=== PATIENT | male | born 1985 | race African-American/Black ===

== ENCOUNTER 2019-03-20 15:12 | Emergency (ER) | payer OTHER ==
[2019-03-20] MEDS ORDERED: ONDANSETRON 4 MG/2 ML VIAL ONE (15:42)
[2019-03-20] MEDS ORDERED: NA CHLORIDE 0.9% 1,000 ML ONE (15:42)
--- NOTE | 2019-03-20 15:50 | RAD REPORT ---
EXAM DESCRIPTION: CT - CTHCSPWOC - 03/20/2019 3:39 pm CLINICAL HISTORY: Trauma, head and neck injury. seizure COMPARISON: No comparisons TECHNIQUE: Axial 5 mm thick images of the head were obtained. Axial 2 mm thick images of the cervical spine were obtained with sagittal and coronal reconstruction images generated and reviewed. All CT scans are performed using dose optimization technique as appropriate and may include automated exposure control or mA/KV adjustment according to patient size. FINDINGS: CT HEAD WITHOUT CONTRAST: No acute hemorrhage, hydrocephalus or extra-axial collection is identified.No areas of brain edema or midline shift. The paranasal sinuses and mastoids are clear.The calvarium is intact. CT CERVICAL SPINE WITHOUT CONTRAST: No fracture or subluxation.No prevertebral soft tissues swelling is identified. IMPRESSION: No acute intracranial or cervical spine findings.
[2019-03-20 15:53] LABS: Absolute Lymphocytes (CBC) 1.9 K/uL (0.7-4.9); Absolute Monocytes 0.4 K/uL (0.1-1.3); Absolute Neutrophil 2.4 K/uL (1.8-8.0); Basophils % 0.4 % (0-1.3); Eosinophils % 1.8 % (0-4.4); Hematocrit 43.1 % (39.6-49.0); Lymphocytes % 39.2 % (15.3-44.8); Monocytes % 9.3 % (3.3-12.3); RBC Red Blood Cell Count 4.85 M/uL (4.33-5.43)
[2019-03-20 16:02] LABS: Protime INR 1.11
[2019-03-20 16:26] LABS: Barbiturates NEGATIVE (NEGATIVE); Benzodiazepines NEGATIVE (NEGATIVE); Cocaine NEGATIVE (NEGATIVE); METHAMPHETAM NEGATIVE (NEGATIVE); Methadone NEGATIVE (NEGATIVE); Opiates NEGATIVE (NEGATIVE); Phencyclidine NEGATIVE (NEGATIVE); THC Cannibis NEGATIVE (NEGATIVE)
[2019-03-20] MEDS ORDERED: FOSPHENYTOIN PE 1,000 MG in NA CHLORIDE 0.9% 100 ML IV ONE (17:00)
[2019-03-20 17:02] LABS: ALT/SGPT 29 U/L (12-78); AST/SGOT 21 U/L (15-37); Alkaline Phosphatase 81 U/L (45-117); BUN Blood Urea Nitrogen 16 mg/dL (7-18); Bicarbonate 25 mmol/L (21-32); Bilirubin Direct < 0.1 mg/dL (0-0.2); Bilirubin Total 0.3 mg/dL (0.2-1.0); Glucose Level 95 mg/dL (74-106); Phenytoin (Dilantin) Level < 0.4 ug/mL (10.0-20.0); Potassium 3.5 mmol/L (3.5-5.1); Sodium Level 143 mmol/L (136-145)
[2019-03-20] MEDS ORDERED: ACETAMINOPHEN 500 MG TAB ONE (17:08)
--- NOTE | 2019-03-20 17:48 | ER ---
Nurse's Notes [facility] Name: Sarah Villatoro Age: 33 yrs Sex: Male : 1985 Arrival Date: 03/20/2019 Time: 15:14 Bed 8 Private MD: Diagnosis: Epilepsy and recurrent seizures Presentation: 03/20 15:10 Presenting complaint: EMS states: called out for seizure witnessed by medical staff and sv inmates, stated he was standing and went down, seizing for about 20 mins before EMS arrived. EMS noted seizure activity on arrival. Pt responded to painful stimuli with sternal rub. Inmate #[id number]. Transition of care: patient was not received from another setting of care. Onset of symptoms was March 20, 2019. Care prior to arrival: IV initiated. 20 GA, in the right antecubital area. 15:10 Method Of Arrival: EMS: [facility] sv 15:10 Acuity: WADE 2 sv 15:20 Risk Assessment: Do you want to hurt yourself or someone else? Patient reports no sv desire to harm self or others. Initial Sepsis Screen: Does the patient meet any 2 criteria? No. Patient's initial sepsis screen is negative. Does the patient have a suspected source of infection? No. Patient's initial sepsis screen is negative. Triage Assessment: 15:19 General: Appears in no apparent distress. uncomfortable, well developed, Behavior is sv cooperative. Pain: Complains of pain in face Pain currently is 5 out of 10 on a pain scale. Neuro: Level of Consciousness is awake, alert, obeys commands, Oriented to person, place, Moves all extremities. Full function Speech is normal. Respiratory: Airway is patent Respiratory effort is even, unlabored, Respiratory pattern is regular, symmetrical. Derm: Skin is pink, warm \T\ dry. Historical: - Allergies: 15:17 No Known Allergies; hb - Home Meds: 15:17 None [Active]; hb - PMHx: 15:17 None; hb - PSHx: 15:17 None; hb - Immunization history:: Adult Immunizations unknown. - Social history:: Smoking status: Patient/guardian denies using tobacco. - Ebola Screening: : No symptoms or risks identified at this time. Screenin:15 Abuse screen: Denies threats or abuse. Denies injuries from another. Nutritional hb screening: No deficits noted. Tuberculosis screening: No symptoms or risk factors identified. Fall Risk Total Santiago Fall Scale indicates High Risk Score (45 or more points). Fall prevention measures have been instituted. Side Rails Up X 2 Placed Close to Nursing Station Frequent Obs/Assessments Occuring As available patient and family educated on Fall Prevention Program and Strategies. Assessment: 16:00 Reassessment: Patient appears in no apparent distress at this time. No changes from sv previously documented assessment. Patient and/or family updated on plan of care and expected duration. Pain level reassessed. Patient is alert, oriented x 3, equal unlabored respirations, skin warm/dry/pink. 17:00 Reassessment: Patient appears in no apparent distress at this time. Patient and/or hb family updated on plan of care and expected duration. Pain level reassessed. Patient is alert, oriented x 3, equal unlabored respirations, skin warm/dry/pink. 18:00 Reassessment: Pt discharged, AOx4, VSS, denies pain, no seizure activity noted this ss visit. PD at bedside, awaiting transport at this time. Vital Signs: 15:15 BP 140 / 88; Pulse 80; Resp 16; Temp 98.3; Pulse Ox 100% on R/A; Pain 5/10; hb 15:43 BP 133 / 83; Pulse 86; Resp 16; Pulse Ox 100% ; sv 16:12 BP 146 / 94; Pulse 80; Resp 20; Pulse Ox 100% on R/A; mh5 16:41 BP 135 / 90; Pulse 83; Resp 16; Pulse Ox 100% ; sv 17:04 BP 142 / 94; Pulse 72; Resp 18; Pulse Ox 100% ; sv 18:00 BP 126 / 82; Pulse 70; Resp 16; Pulse Ox 99% on R/A; Pain 0/10; ss Gary Coma Score: 15:19 Eye Response: to voice(3). Verbal Response: confused(4). Motor Response: obeys sv commands(6). Total: 13. 17:00 Eye Response: spontaneous(4). Verbal Response: oriented(5). Motor Response: obeys hb commands(6). Total: 15. ED Course: 15:14 Patient arrived in ED. sv 15:15 Arm band placed on. hb 15:16 Patient has correct armband on for positive identification. Side rails up X2. Security hb at bedside. Seizure precautions initiated. 15:16 Inserted saline lock: 20 gauge in right antecubital area, using aseptic technique. hb Blood collected. 15:19 Triage completed. sv 15:19 Gabriela Moran, JEMMA is Primary Nurse. sv 15:19 Mario Strickland PA is PHCP. cp 15:19 Marciano Elias MD is Attending Physician. cp 15:[address] via stretcher. sv 15:39 CT Head C Spine In Process Unspecified. EDMS 15:48 EKG done, by therapeutic massage technician. reviewed by Mario GIBBONS. sm3 15:53 Acetaminophen Sent. sv 15:53 Basic Metabolic Panel Sent. sv 18:10 No provider procedures requiring assistance completed. IV discontinued, intact, ss bleeding controlled, No redness/swelling at site. Administered Medications: 15:53 Drug: NS 0.9% 1000 ml Route: IV; Rate: 1 bolus; Site: right antecubital; sv 17:12 Follow up: Response: No adverse reaction; IV Status: Completed infusion; IV Intake: ss 1000ml 15:53 Drug: Zofran 4 mg Route: IVP; Site: right antecubital; hb 16:30 Follow up: Response: No adverse reaction hb 17:17 Drug: CEREbyx 1 grams Route: IVPB; Site: right antecubital; hb 17:35 Follow up: Response: No adverse reaction; IV Status: Completed infusion; IV Intake: ss 100ml 17:17 Drug: Tylenol 1000 mg Route: PO; hb 18:06 Follow up: Response: No adverse reaction; Pain is decreased ss 17:44 Drug: Dilantin 100 mg Route: PO; ss 18:07 Follow up: Response: Medication administered at discharge. ss Intake: 17:12 IV: 1000ml; Total: 1000ml. ss 17:35 IV: 100ml; Total: 1100ml. ss Outcome: 17:48 Discharge ordered by . cp 18:10 Discharged to Law Enforcement ss 18:10 Condition: stable 18:10 Discharge instructions given to patient, police, Instructed on discharge instructions, follow up and referral plans. medication usage, Demonstrated understanding of instructions, follow-up care, medications, Prescriptions given X 1. 18:24 Patient left the ED. sv Signatures: Dispatcher [employer] EDOR Luisa, Gabriela, Mally Arthur RN, RN RN Mairo Yuen PA PA cp Baxter, Heather, JEMMA RN Shanique Painting [facility] Dorinda Huber [facility] Corrections: (The following items were deleted from the chart) 17:03 15:19 GCS: 13, puja sv
--- NOTE | 2019-03-20 17:48 | EDPHYS ---
Physician Documentation [facility] Name: Sarah Villatoro Age: 33 yrs Sex: Male : 1985 Arrival Date: 03/20/2019 Time: 15:14 Bed 8 Private MD: ED Physician Marciano Elias HPI: 03/20 15:30 This 33 yrs old Black Male presents to ER via EMS with complaints of Seizure. cp 15:30 The patient presents after having a single isolated seizure, that lasted an unknown cp period of time, the episode(s) was witnessed, correction staff. Character of seizure(s): Loss of consciousness: the patient experienced loss of consciousness, Motor activity: generalized, Incontinence: none. Seizure onset: just prior to arrival. Context: occurred correction unit, Contributing factors: unknown. Associated injury: The patient did not suffer any apparent associated injury. EMS care: none. Current symptoms: confusion, decreased level of consciousness. 17:07 Patient reports he takes dilantin 100mg tid for seizure disorder, but has not been cp taking medication for several months since being transferred to [facility] correctional unit. Historical: - Allergies: 15:17 No Known Allergies; hb - Home Meds: 15:17 None [Active]; hb - PMHx: 15:17 None; hb - PSHx: 15:17 None; hb - Immunization history:: Adult Immunizations unknown. - Social history:: Smoking status: Patient/guardian denies using tobacco. - Ebola Screening: : No symptoms or risks identified at this time. ROS: 15:35 Constitutional: Negative for body aches, chills, fever, poor PO intake. cp 15:35 Eyes: Negative for injury, pain, redness, and discharge. cp 15:35 Neck: Negative for bony tenderness. 15:35 Cardiovascular: Negative for chest pain. 15:35 Respiratory: Negative for cough. 15:35 Abdomen/GI: Negative for vomiting, diarrhea, constipation. 15:35 Neuro: Positive for headache, history of seizure. 15:35 All other systems are negative. Exam: 15:45 Constitutional: The patient appears in no acute distress, alert, awake, cp non-diaphoretic, well developed, well nourished. 15:45 Head/Face: Normocephalic, atraumatic. cp 15:45 Eyes: Periorbital structures: appear normal, Pupils: equal, round, and reactive to light and accomodation, Conjunctiva: normal, Sclera: no appreciated abnormality, Lids and lashes: appear normal, bilaterally. 15:45 ENT: External ear(s): are unremarkable, Ear canal(s): are normal, clear, TM's: dullness, bilaterally, Nose: is normal, Mouth: Lips: moist, Oral mucosa: moist, Posterior pharynx: is normal, airway is patent, no erythema, no exudate. 15:45 Neck: External neck: tenderness, that is mild, of the left mid cervical area and right mid cervical area, C-spine: crepitus, is not appreciated. 15:45 Chest/axilla: Inspection: normal, Palpation: is normal, no crepitus, no tenderness. 15:45 Cardiovascular: Rate: normal, Rhythm: regular, Edema: is not appreciated, JVD: is not appreciated. 15:45 Respiratory: the patient does not display signs of respiratory distress, Respirations: normal, no use of accessory muscles, no retractions, no splinting, no tachypnea, labored breathing, is not present, Breath sounds: are clear throughout, no decreased breath sounds, no stridor, no wheezing. 15:45 Abdomen/GI: Inspection: abdomen appears normal, Bowel sounds: active, all quadrants, Palpation: abdomen is soft and non-tender, in all quadrants. 15:45 Musculoskeletal/extremity: Exam is negative for decreased range of motion, deformity, injury. 15:45 Neuro: Orientation: to person, Mentation: confused. 15:55 ECG was reviewed by the Attending Physician. cp Vital Signs: 15:15 BP 140 / 88; Pulse 80; Resp 16; Temp 98.3; Pulse Ox 100% on R/A; Pain 5/10; hb 15:43 BP 133 / 83; Pulse 86; Resp 16; Pulse Ox 100% ; sv 16:12 BP 146 / 94; Pulse 80; Resp 20; Pulse Ox 100% on R/A; mh5 16:41 BP 135 / 90; Pulse 83; Resp 16; Pulse Ox 100% ; sv 17:04 BP 142 / 94; Pulse 72; Resp 18; Pulse Ox 100% ; sv 18:00 BP 126 / 82; Pulse 70; Resp 16; Pulse Ox 99% on R/A; Pain 0/10; ss [place] Coma Score: 15:19 Eye Response: to voice(3). Verbal Response: confused(4). Motor Response: obeys sv commands(6). Total: 13. 17:00 Eye Response: spontaneous(4). Verbal Response: oriented(5). Motor Response: obeys hb commands(6). Total: 15. MDM: 15:20 Patient medically screened. cp 16:00 Differential diagnosis: cerebral vascular accident, drug overdose, cardiac arrhythmia, cp seizure. 17:47 Data reviewed: vital signs, nurses notes, lab test result(s), EKG, radiologic studies, cp CT scan. 17:47 Test interpretation: by ED physician or midlevel provider: ECG. Counseling: I had a cp detailed discussion with the patient and/or guardian regarding: the historical points, exam findings, and any diagnostic results supporting the discharge/admit diagnosis, lab results, radiology results, the need for outpatient follow up, a neurologist, to return to the emergency department if symptoms worsen or persist or if there are any questions or concerns that arise at home. Response to treatment: the patient's symptoms have markedly improved after treatment, VSS. Patient back to baseline. No seizure activity observed while in ED, and as a result, I will discharge patient. 03/20 15:27 Order name: Acetaminophen 03/20 15: Order name: Basic Metabolic Panel 03/20 15:27 Order name: CBC with Diff; Complete Time: 17:06 03/20 17:22 Interpretation: Reviewed. 03/20 15: Order name: ETOH Level; Complete Time: 17:06 03/20 15:27 Order name: Hepatic Function; Complete Time: 17:06 03/20 17:06 Interpretation: Normal except: GLOB 4.0; A/G 1.0. 03/20 15:27 Order name: PT-INR; Complete Time: 17:06 03/20 17:21 Interpretation: Normal except: PT 13.1. 03/20 15:27 Order name: Ptt, Activated; Complete Time: 17:06 03/20 15:27 Order name: Salicylate; Complete Time: 17:06 03/20 15:27 Order name: Urine Drug Screen; Complete Time: 17:06 03/20 15:27 Order name: Dilantin; Complete Time: 17:06 cp 03/20 15:27 Order name: CT Head C Spine; Complete Time: 15:54 cp 03/20 15:54 Interpretation: Reviewed report. 03/20 15:27 Order name: Acetaminophen Level; Complete Time: 17:06 EDMS 03/20 15:27 Order name: Basic Metabolic Panel; Complete Time: 17:06 EDMS 03/20 17:07 Interpretation: Normal except: CL 109. cp 03/20 16:12 Order name: Urine Dipstick--Ancillary (enter results) eb 03/20 15:27 Order name: EKG; Complete Time: 15:28 cp 03/20 15:27 Order name: EKG - Nurse/Tech; Complete Time: 15:53 cp 03/20 15:27 Order name: IV Saline Lock; Complete Time: 15:29 cp 03/20 15:27 Order name: Labs collected and sent; Complete Time: 15:29 cp EC:55 Rate is 82 beats/min. Rhythm is regular. SC interval is normal. QRS interval is normal. cp QT interval is normal. Interpreted by me. Reviewed by me. Administered Medications: 15:53 Drug: NS 0.9% 1000 ml Route: IV; Rate: 1 bolus; Site: right antecubital; sv 17:12 Follow up: Response: No adverse reaction; IV Status: Completed infusion; IV Intake: ss 1000ml 15:53 Drug: Zofran 4 mg Route: IVP; Site: right antecubital; hb 16:30 Follow up: Response: No adverse reaction hb 17:17 Drug: CEREbyx 1 grams Route: IVPB; Site: right antecubital; hb 17:35 Follow up: Response: No adverse reaction; IV Status: Completed infusion; IV Intake: ss 100ml 17:17 Drug: Tylenol 1000 mg Route: PO; hb 18:06 Follow up: Response: No adverse reaction; Pain is decreased ss 17:44 Drug: Dilantin 100 mg Route: PO; ss 18:07 Follow up: Response: Medication administered at discharge. Disposition: 03/20/19 17:48 Discharged to Home. Impression: Epilepsy and recurrent seizures. - Condition is Stable. - Discharge Instructions: Seizure, Adult. - Prescriptions for Dilantin Kapseal 100 mg Oral Capsule - take 1 capsule by ORAL route every 8 hours; 90 capsule. - Medication Reconciliation Form, Thank You Letter, Antibiotic Education, Prescription Opioid Use form. - Follow up: Private Physician; When: 1 - 2 days; Reason: Recheck today's complaints, neurology services. - Problem is an acute exacerbation. - Symptoms have improved. Addendum: 03/25/2019 10:27 Co-signature as Attending Physician, Marciano Elias MD I agree with the assessment and k dr plan of care. Signatures: Dispatcher [employer] Gabriela Dominguez, RN RN Marciano Elias MD MD [facility] Mally Escamilla RN RN ss Mario Strickland PA PA cp Ninfa Hanna RN RN Corrections: (The following items were deleted from the chart) 03/20 18:24 17:48 03/20/2019 17:48 Discharged to Home. Impression: Epilepsy and recurrent seizures. sv Condition is Stable. Prescriptions for Dilantin Kapseal 100 mg Oral Capsule - take 1 capsule by ORAL route every 8 hours; 90 capsule. and Forms are Medication Reconciliation Form, Thank You Letter, Antibiotic Education, Prescription Opioid Use. Follow up: Private Physician; When: 1 - 2 days; Reason: Recheck today's complaints, neurology services. Problem is an acute exacerbation. Symptoms have improved. cp
[2019-03-20] MEDS ORDERED: PHENYTOIN ER 100 MG CAP PO ONE (18:04)
[2019-03-20 20:11] LABS: Urine Blood NEGATIVE (NEG); Urine Glucose NEGATIVE (NEG); Urine Protein 2+ (NEG); Urine pH 6.5 (5.0-7.0)
--- NOTE | 2019-03-21 06:43 | EKG ---
Test Date: 2019-03-20 Test Time: 15:45:02 Data Center Architect: TAMMI MEASUREMENT RESULTS: Intervals: Rate: 82 TX: 172 QRSD: 90 QT: 392 QTc: 457 [place]: P: 41 TX: 172 QRS: 19 T: 9 INTERPRETIVE STATEMENTS: Normal sinus rhythm Nonspecific T wave abnormality Abnormal ECG No previous ECG available for comparison Electronically Signed On 03-21-19 06:42:17 CDT by Benny Mckinney
== END 2019-03-20 18:24 | disposition home or self-care (01) ==
LOC: ER 15:12
DX: G40.909 Epilepsy, unspecified, not intractable, without status epilepticus (principal)
CPT/HCPCS: 36415; 70450; 72125; 80048; 80076; 80185; 80307; 80320; 80329; 81003; 85025; 85610; 85730; 93005; 96361; 96365; 96375; 99285; J2405; J7030; Q2009

== ENCOUNTER 2019-03-24 12:29 | Emergency (ER) | payer OTHER ==
--- NOTE | 2019-03-24 12:59 | RAD REPORT ---
EXAM DESCRIPTION: CT - Head Brain Wo Cont - 03/24/2019 12:52 pm CLINICAL HISTORY: Seizure COMPARISON: None. TECHNIQUE: Axial 5 mm thick images of the head were obtained without IV contrast. All CT scans are performed using dose optimization technique as appropriate and may include automated exposure control or mA/KV adjustment according to patient size. FINDINGS: No intracranial hemorrhage, mass, edema or shift of mid-line structures. No acute infarcti on changes seen. No abnormal extra-axial fluid collections. Ventricles are normal. Mastoid air cells and visualized portions of the paranasal sinuses are clear. No acute bony findings. IMPRESSION: Negative non-contrast CT head examination.
[2019-03-24] MEDS ORDERED: PHENYTOIN Inj 1,000 MG in NA CHLORIDE 0.9% 100 ML IV ONE (13:00)
[2019-03-24] MEDS ORDERED: ONDANSETRON 4 MG/2 ML VIAL ONE (13:01)
[2019-03-24] MEDS ORDERED: NA CHLORIDE 0.9% 1,000 ML ONE (13:01)
[2019-03-24 13:11] LABS: BUN Blood Urea Nitrogen 10 mg/dL (7-18); Bicarbonate 28 mmol/L (21-32); Glucose Level 94 mg/dL (74-106); Phenytoin (Dilantin) Level 2.7 ug/mL (10.0-20.0); Potassium 3.8 mmol/L (3.5-5.1); Sodium Level 142 mmol/L (136-145)
[2019-03-24 13:14] LABS: Barbiturates NEGATIVE (NEGATIVE); Benzodiazepines POSITIVE (NEGATIVE); Cocaine NEGATIVE (NEGATIVE); METHAMPHETAM NEGATIVE (NEGATIVE); Methadone NEGATIVE (NEGATIVE); Opiates NEGATIVE (NEGATIVE); Phencyclidine NEGATIVE (NEGATIVE); THC Cannibis NEGATIVE (NEGATIVE); Urine Bacteria <20 /HPF (NONE SEEN); Urine Culture Reflex Order NOT NEEDED; Urine RBC <5 /HPF (NONE SEEN)
[2019-03-24 13:18] LABS: Absolute Lymphocytes (CBC) 1.8 K/uL (0.7-4.9); Absolute Monocytes 0.3 K/uL (0.1-1.3); Absolute Neutrophil 2.8 K/uL (1.8-8.0); Basophils % 0.6 % (0-1.3); Eosinophils % 2.3 % (0-4.4); Lymphocytes % 35.7 % (15.3-44.8); MPV 11.4 fL (7.6-11.3); Monocytes % 5.6 % (3.3-12.3); RBC Red Blood Cell Count 4.99 M/uL (4.33-5.43)
[2019-03-24 13:31] LABS: Blood Morphology Comment NOT SEEN (NOT SEEN); Platelet Estimate ADEQ
--- NOTE | 2019-03-24 13:43 | EKG ---
Test Date: 2019-03-24 Test Time: 12:34:36 Optical Instrument Repairer: KIRSTEN MEASUREMENT RESULTS: Intervals: Rate: 96 NM: 174 QRSD: 80 QT: 362 QTc: 457 [place]: P: 45 NM: 174 QRS: 82 T: -10 INTERPRETIVE STATEMENTS: Normal sinus rhythm T wave abnormality, consider anterior ischemia Abnormal ECG Compared to ECG 03/20/2019 15:45:02 Possible ischemia now present T-wave abnormality still present Electronically Signed On 03-24-19 13:42:25 CDT by Darius Ivey
[2019-03-24 14:11] LABS: Urine Blood NEGATIVE (NEG); Urine Glucose NEGATIVE (NEG); Urine Protein 2+ (NEG); Urine pH 8.5 (5.0-7.0)
--- NOTE | 2019-03-24 14:39 | ER ---
Nurse's Notes [facility] Name: Sarah Villatoro Age: 33 yrs Sex: Male : 1985 Arrival Date: 03/24/2019 Time: 12:32 Bed 4 Private MD: Diagnosis: Epilepsy and recurrent seizures;Subtherapeutic dilantin level Presentation: 03/24 12:30 Presenting complaint: EMS states: seizure x 50 minutes. Custodial nurse reports that ss patient has refused his medication for the last two days for unknown reason. EMS reports that patient seized for a total of 50 minutes, continuously. On arrival to ED. Pt is not seizing, is A\\T\\O x4. Transition of care: [facility] unit Custodial. Onset of symptoms was March 24, 2019. Risk Assessment: Do you want to hurt yourself or someone else? Patient reports no desire to harm self or others. Initial Sepsis Screen: Does the patient have a suspected source of infection? No. Patient's initial sepsis screen is negative. Care prior to arrival: Medication(s) given: zofran 4 mg, VERSED 4 mg IVP IV initiated. 20 GA, in the left antecubital area, [facility] unit nurse administered Ativan 2 mg IM x2 without change in status. 12:30 Method Of Arrival: EMS: [facility] 12:30 Acuity: WADE 2 ss Historical: - Allergies: 12:41 PENICILLINS; ss - Home Meds: 12:41 Dilantin Oral 100 mg twice a day [Active]; aspirin 81 mg Oral TbEC 1 tab once daily ss [Active]; - PMHx: 12:41 Seizures; TBI at 16 yo; ss - PSHx: 12:41 None; ss - Immunization history:: Adult Immunizations up to date. - Social history:: Smoking status: Patient/guardian denies using tobacco. - Family history:: not pertinent. - Ebola Screening: : Patient denies exposure to infectious person Patient denies travel to an Ebola-affected area in the 21 days before illness onset. - Hospitalizations: : No recent hospitalization is reported. Screenin:30 Tuberculosis screening: No symptoms or risk factors identified. Fall Risk Total Santiago hb Fall Scale indicates High Risk Score (45 or more points). Fall prevention measures have been instituted. Side Rails Up X 2 Frequent Obs/Assessments Occuring As available patient and family educated on Fall Prevention Program and Strategies. 12:40 Abuse screen: Denies threats or abuse. Denies injuries from another. Nutritional sg screening: No deficits noted. 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 13:30 Reassessment: Patient appears in no apparent distress at this time. Patient and/or hb family updated on plan of care and expected duration. Pain level reassessed. Patient is alert, oriented x 3, equal unlabored respirations, skin warm/dry/pink. 15:06 Reassessment: Patient appears in no apparent distress at this time. pt to be discharged sg to [facility], guards report that they need to get confirmation for discharge, pt is free to go at this time. Vital Signs: 12:41 BP 133 / 87; Pulse 85; Resp 18; Pulse Ox 99% on R/A; Weight 82.55 kg; Height 5 ft. 8 ss in. (172.72 cm); 12:44 Temp 98.2(TE); ss 13:45 BP 129 / 81; Pulse 84; Resp 16; Pulse Ox 99% on R/A; hb 12:41 Body Mass Index 27.67 (82.55 kg, 172.72 cm) ED Course: 12:32 Patient arrived in ED. rn 12:32 Abhinav Garcia MD is Attending Physician. rn 12:41 Triage completed. ss 12:41 Arm band placed on right wrist. ss 12:44 Maintain EMS IV. Dressing intact. Good blood return noted. Site clean \\T\\ dry. Gauge \\T\\ ss site: 20 gauge in L AC. Patient maintains SpO2 saturation greater than 95% on room air. 12:44 Initial lab(s) drawn, by me, sent to lab. 3 12:45 Patient has correct armband on for positive identification. Bed in low position. Call hb light in reach. Side rails up X2. Security at bedside. Seizure precautions initiated. 12:46 EKG done, by hvac tech. reviewed by Abhinav Garcia MD. at1 12:53 CT Head Brain wo Cont In Process Unspecified. EDMS 13:03 Ninfa Hanna, RN is Primary Nurse. hb Administered Medications: 13:06 Drug: Zofran 4 mg Route: IVP; Site: left antecubital; hb 13:08 Drug: NS 0.9% 1000 ml Route: IV; Rate: 1000 ml; Site: left antecubital; hb 13:08 Drug: Phenytoin 1 grams Route: IVPB; Site: left antecubital; hb Outcome: 14:38 Discharge ordered by . rn 16:22 Patient left the ED. ss Signatures: Dispatcher [employer] EDMS Damon Keane RN RN Abhinav Garcia MD MD rn Smirch, Shelby, RN RN Tiffany Biggs, bleach boiler filler EKG Tat1 Ninfa Hanna, RN RN Elma Dockery 3 Corrections: (The following items were deleted from the chart) 17:17 17:17 General: Appears hb hb
--- NOTE | 2019-03-24 14:39 | EDPHYS ---
Physician Documentation [facility] Name: Sarah Villatoro Age: 33 yrs Sex: Male : 1985 Arrival Date: 03/24/2019 Time: 12:32 Bed 4 Private MD: ED Physician Abhinav Garcia HPI: 03/24 12:36 This 33 yrs old Black Male presents to ER via Unassigned with complaints of seizure. rn 12:36 The patient presents with a history of multiple seizures. Character of seizure(s): Loss rn of consciousness: the patient did not lose consciousness, Motor activity: generalized, Incontinence: none. Seizure onset: 50 minute(s) ago. Associated injury: The patient did not suffer any apparent associated injury. Current symptoms: headache. The patient has experienced similar episodes in the past. Reports headache, nausea, for 2 days, today started to have seizures, witnessed, total approx 50 min of seizures, unknown if ever back to baseline, given 4mg ativan at unit, no help, EMS administered 4mg versed and stopped seizure. + vomiting. No other focal neurological problem, Reports generalized body aches and pain.. Historical: - Allergies: 12:41 PENICILLINS; ss - Home Meds: 12:41 Dilantin Oral 100 mg twice a day [Active]; aspirin 81 mg Oral TbEC 1 tab once daily ss [Active]; - PMHx: 12:41 Seizures; TBI at 16 yo; ss - PSHx: 12:41 None; ss - Immunization history:: Adult Immunizations up to date. - Social history:: Smoking status: Patient/guardian denies using tobacco. - Family history:: not pertinent. - Ebola Screening: : Patient denies exposure to infectious person Patient denies travel to an Ebola-affected area in the 21 days before illness onset. - Hospitalizations: : No recent hospitalization is reported. ROS: 12:36 Constitutional: Negative for fever, chills, and weight loss, Eyes: Negative for injury, rn pain, redness, and discharge, Neck: Negative for injury, pain, and swelling, Cardiovascular: Negative for chest pain, palpitations, and edema, Respiratory: Negative for shortness of breath, cough, wheezing, and pleuritic chest pain, Abdomen/GI: Negative for abdominal pain, diarrhea, and constipation, MS/Extremity: Negative for injury and deformity, Neuro: + headache and generalized weakness Exam: 12:36 Constitutional: This is a well developed, well nourished patient who is awake, alert, rn and in no acute distress. Head/Face: Normocephalic, atraumatic. Eyes: Pupils equal round and reactive to light, extra-ocular motions intact. Lids and lashes normal. Conjunctiva and sclera are non-icteric and not injected. Cornea within normal limits. Periorbital areas with no swelling, redness, or edema. ENT: dry MM, emesis on maureen-oral face Neck: Trachea midline, no thyromegaly or masses palpated, and no cervical lymphadenopathy. Supple, full range of motion without nuchal rigidity, or vertebral point tenderness. No Meningismus. Cardiovascular: Tachycardic, regular, no murmur Respiratory: No increased work of breathing, no retractions or nasal flaring. Abdomen/GI: soft, non-tender MS/ Extremity: Pulses equal, no cyanosis. Neurovascular intact. Full, normal range of motion. Equal circumference. Neuro: Awake and alert, GCS 15, oriented to person, place, time, and situation. Cranial nerves II-XII grossly intact. Motor strength 5/5 in all extremities. Sensory grossly intact. Cerebellar exam normal. Vital Signs: 12:41 BP 133 / 87; Pulse 85; Resp 18; Pulse Ox 99% on R/A; Weight 82.55 kg; Height 5 ft. 8 ss in. (172.72 cm); 12:44 Temp 98.2(TE); ss 13:45 BP 129 / 81; Pulse 84; Resp 16; Pulse Ox 99% on R/A; hb 12:41 Body Mass Index 27.67 (82.55 kg, 172.72 cm) MDM: 12:32 Patient medically screened. rn 14:36 Differential diagnosis: seizure. Data reviewed: vital signs, nurses notes, lab test rn result(s), radiologic studies, CT scan, and as a result, I will discharge patient. Counseling: I had a detailed discussion with the patient and/or guardian regarding: the historical points, exam findings, and any diagnostic results supporting the discharge/admit diagnosis, lab results, radiology results, the need for outpatient follow up, to return to the emergency department if symptoms worsen or persist or if there are any questions or concerns that arise at home. Response to treatment: the patient's symptoms have markedly improved after treatment, the patient's condition has returned to base line, the patient is now symptom free, and as a result, I will discharge patient. Special discussion: I discussed with the patient/guardian in detail that at this point there is no indication for admission to the hospital. It is understood, however, that if the symptoms persist or worsen the patient needs to return immediately for re-evaluation. 14:36 ED course: Recurrent seizures due to subtherapeutic level of dilantin.. rn 03/24 12:33 Order name: CBC with Diff; Complete Time: 14:14 rn 03/24 12:33 Order name: Basic Metabolic Panel; Complete Time: 14:14 rn 03/24 12:33 Order name: Urine Drug Screen; Complete Time: 14:14 rn 03/24 12:33 Order name: Urine Microscopic Only; Complete Time: 14:14 rn 03/24 12:33 Order name: Phenytoin (dilantin); Complete Time: 14:14 rn 03/24 13:03 Order name: Urine Dipstick--Ancillary (enter results); Complete Time: 14:14 03/24 12:33 Order name: CT Head Brain wo Cont; Complete Time: 13:07 rn 03/24 12:33 Order name: IV Start; Complete Time: 12:47 rn 03/24 12:33 Order name: Urine Dipstick-Ancillary (obtain specimen); Complete Time: 12:47 rn 03/24 12:33 Order name: EKG; Complete Time: 12:34 rn 03/24 13:32 Order name: Manual Differential; Complete Time: 14:14 EDMS 03/24 12:33 Order name: EKG - Nurse/Tech; Complete Time: 12:47 rn Administered Medications: 13:06 Drug: Zofran 4 mg Route: IVP; Site: left antecubital; hb 13:08 Drug: NS 0.9% 1000 ml Route: IV; Rate: 1000 ml; Site: left antecubital; hb 13:08 Drug: Phenytoin 1 grams Route: IVPB; Site: left antecubital; hb Disposition: 03/24/19 14:38 Discharged to Home. Impression: Epilepsy and recurrent seizures, Subtherapeutic dilantin level. - Condition is Stable. - Discharge Instructions: Seizure, Adult. - Medication Reconciliation Form, Thank You Letter, Antibiotic Education, Prescription Opioid Use form. - Follow up: Private Physician; When: As needed; Reason: Recheck today's complaints, Re-evaluation by your physician. - Problem is new. - Symptoms have improved. - Notes: Patient needs to take dilantin as prescribed or will continue to have frequent and possibly intractable epileptic seizures. Signatures: Dispatcher [employer] EDMS Abhinav Garcia MD MD rn Smirch, Shelby, RN RN Ninfa Hanna RN RN Corrections: (The following items were deleted from the chart) 16:22 14:38 03/24/2019 14:38 Discharged to Home. Impression: Epilepsy and recurrent seizures; ss Subtherapeutic dilantin level. Condition is Stable. Forms are Medication Reconciliation Form, Thank You Letter, Antibiotic Education, Prescription Opioid Use. Follow up: Private Physician; When: As needed; Reason: Recheck today's complaints, Re-evaluation by your physician. Problem is new. Symptoms have improved. rn
== END 2019-03-24 16:22 | disposition home or self-care (01) ==
LOC: ER 12:29
DX: G40.802 Other epilepsy, not intractable, without status epilepticus (principal); R89.2 Abnormal level of other drugs, medicaments and biological substances in specimens from other organs, systems and tissues; Z79.82 Long term (current) use of aspirin; Z88.0 Allergy status to penicillin; Z87.820 Personal history of traumatic brain injury
CPT/HCPCS: 36415; 70450; 80048; 80185; 80307; 81003; 81015; 85025; 93005; J1165; J2405; J7030